=== PATIENT | female | born 1980 | race Caucasian/White ===

== ENCOUNTER 2020-12-23 18:04 | Day surgery (SDCO) | payer OTHER ==
[~2020-12-23] VITALS: Ht 160 cm; Wt 79.4 kg
[2020-12-23 18:32] LABS: BASOPHIL 0.6 % (0-2); HCT 34.2 % (37.0-47.0); HGB 10.7 g/dl (12.5-16.0); LYMPHOCYTE 45.7 % (15-48); MCHC 31.3 g/dL (32.0-36.0); MCV 86.1 fL (78.0-100.0); MONOCYTE 7.1 % (0-12); MPV 11.7 fL (6.0-9.5); NEUTROPHIL 42.4 % (41-80); NRBC 0; PLT 315 K/uL (150-400); RBC 3.97 M/uL (4.20-5.40); RDW 15.2 % (11.5-14.0); WBC 12.4 K/uL (4.0-10.5)
[2020-12-23 18:49] LABS: ALBUMIN 3.5 g/dL (3.4-5.0); BILIRUBIN - TOTAL 0.4 mg/dL (0.2-1.0); BUN/CREAT RATIO (CALC) 22.5 RATIO; CREATININE 0.71 mg/dL (0.51-0.95); GLOBULIN (CALCULATION) 3.6 g/dL; POTASSIUM 3.4 mmol/L (3.5-5.1); TOTAL PROTEIN 7.1 g/dL (6.4-8.2)
[2020-12-23 18:55] LABS: LACTIC ACID 2.2 mmol/L (0.4-1.9)
[2020-12-23 21:25] LABS: BILIRUBIN 1+ mg/dL (NEGATIVE); BLOOD 3+ Ery/uL (NEGATIVE); CLARITY CLOUDY (CLEAR); COLOR RED (YELLOW); GLUCOSE (U) NORMAL (NORMAL); LEUKOCYTES TRACE Leu/uL (NEGATIVE); NITRITE POSITIVE (NEGATIVE); PROTEIN 2+ mg/dL (NEGATIVE); UROBILINOGEN 0.2 mg/dL (0.2-1.0)
[2020-12-23 21:26] LABS: URINARY RBC TNTC
[2020-12-23 21:27] LABS: BACTERIA 1+
[2020-12-23 21:33] LABS: BARBITURATES NEGATIVE (NEGATIVE); ECSTASY (MDMA) NEGATIVE (NEGATIVE); MARIJUANA (THC) NEGATIVE (NEGATIVE); METHADONE NEGATIVE (NEGATIVE); OPIATES POSITIVE (NEGATIVE)
[2020-12-23 21:34] LABS: AMPHETAMINES NEGATIVE (NEGATIVE); OXYCODONE NEGATIVE (NEGATIVE)
[2020-12-24] MEDS ORDERED: PERCOCET 5-3251 EACH PO (14:18)
[2020-12-24] MEDS ORDERED: IBUPROFEN600 MG PO (14:18)
[2020-12-24] MEDS ORDERED: MACROBID100 MG PO (14:21)
== END 2020-12-24 16:47 | disposition home or self-care (01) ==
LOC: FER 18:04 → FMS 22:46 → FOFB 22:46 → FSDC 12-24 11:22
PROVIDERS: Internal Medicine; ADMIT Obstetrics & Gynecology
DX: D27.1 Benign neoplasm of left ovary (principal); N83.512 Torsion of left ovary and ovarian pedicle; N83.8 Other noninflammatory disorders of ovary, fallopian tube and broad ligament; E66.9 Obesity, unspecified; Z20.822 Contact with and (suspected) exposure to COVID-19; N39.0 Urinary tract infection, site not specified; D64.9 Anemia, unspecified; R31.9 Hematuria, unspecified
CPT/HCPCS: 36415; 76830; 80053; 80305; 81001; 82150; 83605; 83690; 85025; 86850; 86900; 86901; 87088; 96372; G0378; J0696; J1100; J1170; J1885; J2250; J2270; J2405; J2550; J2704; J2710; J3010; J7120; U0002